=== PATIENT | female | born 1955 | race Caucasian/White ===

== ENCOUNTER → 2018-11-29 | Day surgery (SDC) | payer OTHER ==
[~2018-11-29] VITALS: Ht 165.1 cm; Wt 67.1 kg
[~2018-11-29] MED LIST: CHOL200074 PO; FISH1CAP15 PO; FOLI-91 PO; LIDOCAINE MPF 1% 5 ML VIAL ONE; LIDOCAINE/SOD BICARB 8.4% SYR ID ONE; NORMOSOL R SOLN(*) 1000 ML BAG 1,000 ML IV PRN; PROPOFOL EMUL(*) 10MG/ML 20 ML 40 ML ONE; UBID100C48 PO
[2018-11-29 08:32] VITALS: BP 152/90
[2018-11-29 09:52] VITALS: BP 90/46
[2018-11-29 10:15] VITALS: BP 96/55
[2018-11-29 10:28] VITALS: BP 95/51
[2018-11-29 11:11] VITALS: BP 96/53
[2018-11-29 11:13] VITALS: BP 103/67
== END ==
LOC: OR 01:47
PROVIDERS: ATTEND Family Medicine
DX: Z12.11 Encounter for screening for malignant neoplasm of colon (principal); D12.2 Benign neoplasm of ascending colon
CPT/HCPCS: 00811; 45385; 88305; J2001; J2704